=== PATIENT | female | born 2000 | race Two or more races ===

== ENCOUNTER 2018-02-27 17:28 | Emergency (ER) | payer OTHER ==
[~2018-02-27] VITALS: Ht 167.6 cm; Wt 56.7 kg
[~2018-02-27 17:28] MED LIST: MACROBID 100 M100 MG PO; PRENATAL CAPLE1 EACH PO
== END 2018-02-27 21:44 | disposition home or self-care (01) ==
LOC: ER 17:28
DX: K52.89 Other specified noninfective gastroenteritis and colitis (principal)